=== PATIENT | male | born 1960 | race Caucasian/White ===

== ENCOUNTER 2017-09-03 15:12 | Emergency (ER) | payer OTHER, SELFPAY ==
[2017-09-03 15:16] VITALS: BP 148/93; PULSE 82; RESP 16; TEMP 36.6; O2SAT 98; BMI 26.3
--- NOTE | 2017-09-03 15:39 | ED.DCSUM_ITS ---
- ER Visit Summary Date of Service: 09/03/17 Chief Complaint: Bleeding from left facial wound History of Present Illness: The patient is a 57 M 3 of anxiety depression and spinal stenosis. He is on no blood thinners. He gets anxious and picks the skin his face. He has had wounds on both cheeks for the last year. He has been evaluated for this by his primary care physician Dr. Johnston. Today he was picking at his left cheek and caused start bleeding. He has been bleeding for the last several hours. Physical Examination: Signs are stable afebrile. He is in no acute distress. H EENT exam pupils are reactive light. Poor dentition. His left cheek has a wound with a deficit of skin that is a pulsatile arterial bleed. Chronic wound is bleeding. I do not see any signs of infection. There is no cellulitis or pus. Lungs clear to auscultation bilaterally. Heart regular rate and rhythm no murmur. Abdomen soft nontender. Moving all 4 extremities. Neurologically is awake and alert. Test Results: None Emergency Department Course and Treatment: Patient will hold LET dilution the left side of his face to hopefully off the bleeding. Treatment Plan: Repeat exam at 1617 the bleeding is completely resolved. There is no bleeding at this time even with manipulation of the left facial wound. I give the patient very clear instructions and cannot keep picking this area or the bleeding or return. The nurses will place a clean dressing and bacitracin will be discharged home. 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 This note was generated with [employer] dictation software. It may contain incorrect words, spelling, and punctuation that were not noted in review of the chart prior to signing ED Disposition - Plan for ED Patient: Disposition: Home or Assisted Living Chief Complaint: Wound Referrals: Mike Johnston, [Primary Care Provider] - As Needed Additional Instructions: Stop picking the skin of your left face. There are going to cause a severe infection and the bleeding will continue. If the bleeding restarts needle direct pressure and ice to the left facial wound. If you are unable to get. He will need to return to the emergency department.
[2017-09-03] MEDS: Lidocaine/Epi/Tetracaine 50 ML 1 APPLIC TOPICAL (15:40)
[2017-09-03 16:28] VITALS: PULSE 85; RESP 16; O2SAT 95
== END 2017-09-03 16:29 | disposition home or self-care (01) ==
LOC: ED 15:48
PROVIDERS: Emergency Provider Emergency Medicine; Family Provider Family Medicine; PCP Family Medicine
DX: S01.402A Unspecified open wound of left cheek and temporomandibular area, initial encounter (principal); R58 Hemorrhage, not elsewhere classified; F41.9 Anxiety disorder, unspecified; F32.9 Major depressive disorder, single episode, unspecified; M48.00 Spinal stenosis, site unspecified; Z72.0 Tobacco use; Z79.899 Other long term (current) drug therapy; Y33.XXXA Other specified events, undetermined intent, initial encounter; Y93.89 Activity, other specified; Y92.89 Other specified places as the place of occurrence of the external cause; Y99.8 Other external cause status
CPT/HCPCS: 99282

== ENCOUNTER 2017-11-15 22:11 | Emergency (ER) | payer OTHER, SELFPAY ==
[2017-11-15 22:12] VITALS: BP 135/90; PULSE 78; RESP 18; TEMP 36.6; O2SAT 98; BMI 29.5
[2017-11-15] MEDS: Diphth,Pertuss(Acell),Tet Vac 0.5 ML Vial IM (22:53)
[2017-11-15] MEDS: Lidocaine/Epi/Tetracaine 50 ML 1 APPLIC TOPICAL (22:53)
--- NOTE | 2017-11-15 23:37 | ED.VISSUMM ---
- ER Visit Summary Date of Service: 11/15/17 Chief Complaint: Laceration left ear] History of Present Illness: The patient is a 57 M presents to the emergency department with a laceration to his left ear that sustained tonight. Patient states that he slipped and fell landing with his ear against a metal bolt. Patient unsure of his last tetanus. Patient denies loss of consciousness. Patient not on any blood thinners.] Physical Examination: HEENT-PERRLA, EOMI. Cranial nerves II through XII grossly intact. TMs clear. Mucous membranes moist. No adenopathy. Left ear-patient has a 2 cm flap-like laceration to the pinna of the left ear with some cartilage involvement. Cardiovascular-regular rate and rhythm without murmur or ectopy Lungs-clear to auscultation, chest wall stable without crepitus or subcu emphysema Abdomen-normoactive bowel sounds, soft, nontender, no rebound or rigidity, no peritoneal signs. Extremities-intact ?4, normal range of motion, normal pulses, atraumatic [] Test Results: [None indicated] Emergency Department Course and Treatment: [Laceration repair per Dr. Rae. Wound was anesthetized locally with let solution topically. Patient had wound irrigated and cleansed. Closed with 6-0 nylon a total of 4 single interrupted sutures placed. Patient was started on Cipro given cartilage involvement.] Treatment Plan: [Patient to follow-up with primary care physician for suture removal in 7 days.] Disposition: [Discharged home in stable condition.] Impression: [Left ear laceration-simple repair] This note was generated with [employer] dictation software. It may contain incorrect words, spelling, and punctuation that were not noted in review of the chart prior to signing ED Disposition - Plan for ED Patient: Chief Complaint: Laceration Referrals: Mike oJhnston DO [Primary Care Provider] -
--- NOTE | 2017-11-15 23:41 | ED.DCSUM_ITS ---
- ER Visit Summary Date of Service: 11/15/17 Chief Complaint: Laceration left ear] History of Present Illness: The patient is a 57 M presents to the emergency department with a laceration to his left ear that sustained tonight. Patient states that he slipped and fell landing with his ear against a metal bolt. Patient unsure of his last tetanus. Patient denies loss of consciousness. Patient not on any blood thinners.] Physical Examination: HEENT-PERRLA, EOMI. Cranial nerves II through XII grossly intact. TMs clear. Mucous membranes moist. No adenopathy. Left ear- patient has a 2 cm flap-like laceration to the pinna of the left ear with some cartilage involvement. Cardiovascular-regular rate and rhythm without murmur or ectopy Lungs-clear to auscultation, chest wall stable without crepitus or subcu emphysema Abdomen-normoactive bowel sounds, soft, nontender, no rebound or rigidity, no peritoneal signs. Extremities-intact ?4, normal range of motion, normal pulses, atraumatic [] Test Results: [None indicated] Emergency Department Course and Treatment: [Laceration repair per Dr. Rae. Wound was anesthetized locally with let solution topically. Patient had wound irrigated and cleansed. Closed with 6-0 nylon a total of 4 single interrupted sutures placed. Patient was started on Cipro given cartilage involvement.] Treatment Plan: [Patient to follow-up with primary care physician for suture removal in 7 days.] Disposition: [Discharged home in stable condition.] Impression: [Left ear laceration-simple repair] This note was generated with [employer] dictation software. It may contain incorrect words, spelling, and punctuation that were not noted in review of the chart prior to signing ED Disposition - Plan for ED Patient: Chief Complaint: Laceration Referrals: Mike Johnston DO [Primary Care Provider] -
--- NOTE | 2017-11-15 23:41 | ED.DEP ---
ED Disposition - Plan for ED Patient: Chief Complaint: Laceration Instructions: ED Laceration Facial Sutr Tape Prescriptions: Ciprofloxacin [Cipro] 500 mg PO BID #14 tab Referrals: Mike Johnston DO [Primary Care Provider] - 7 Days for suture removal
[2017-11-15] MEDS: Ciprofloxacin 250 MG Tablet 500 MG PO (23:48)
[2017-11-15 23:51] VITALS: PULSE 82; RESP 14; O2SAT 99
== END 2017-11-16 | disposition home or self-care (01) ==
LOC: ED 22:31
PROVIDERS: Emergency Provider Emergency Medicine; Family Provider Family Medicine; PCP Family Medicine
DX: S01.312A Laceration without foreign body of left ear, initial encounter (principal); F41.9 Anxiety disorder, unspecified; F32.9 Major depressive disorder, single episode, unspecified; M54.9 Dorsalgia, unspecified; Z72.0 Tobacco use; Z79.891 Long term (current) use of opiate analgesic; Z79.899 Other long term (current) drug therapy; W26.8XXA Contact with other sharp object(s), not elsewhere classified, initial encounter; Y93.01 Activity, walking, marching and hiking; Y92.89 Other specified places as the place of occurrence of the external cause; Y99.8 Other external cause status
CPT/HCPCS: 12011; 90471; 90715; 99283

== ENCOUNTER → 2018-06-04 14:12 | Outpatient (CLI) | payer OTHER, SELFPAY ==
[2018-06-04 17:34] LABS: Absolute Lymphocyte Count 2.74 X10^3/ul (0.83-4.51); Absolute Neutrophil Count 4.1 X10^3/uL (2.0-7.7); Basophil# 0.04 X10^3/uL; Basophil% 0.5 % (0-1); Eosinophil# 0.21 X10^3/uL; Eosinophils% 2.7 % (0-5); Hematocrit 43.7 % (40-54); Hemoglobin 14.5 g/dl (13.0-16.5); Lymphocyte # 2.74 X10^3/ul (4.0); Lymphocyte % 35.2 % (19-41); Mean Corp Hgb Conc 33.2 g/gl (32-36); Mean Corpuscular Volume 96.5 fL (80-94); Mean Platelet Vol. 11.3 fl (6.2-12.0); Monocyte# 0.71 X10^3/uL; Monocyte% 9.1 % (0-10); Neutrophil # 4.06 X10^3/uL (2.7-7.7); Neutrophil % 52.1 % (47-70); POSITIVE COUNT NO; POSITIVE DIFFERENTIAL NO; POSITIVE MORPHOLOGY NO; Platelet Count 248 K/mm3 (150-450); RBC Distribution Width CV 13.2 % (11.6-14.6); RBC Distribution Width SD 45.6 fl (35.1-43.9); Red Blood Count 4.53 M/mm3 (4.6-6.2); White Blood Count 7.8 K/mm3 (4.4-11.0)
[2018-06-04 17:45] LABS: ALB/GLOB Ratio 1.1 RATIO (0.9-2.4); AST(SGOT) 18 U/L (15-37); Alanine Aminotransfer ALT/SGPT 24 U/L (16-61); Alkaline Phosphatase 105 U/L (45-117); Anion Gap 8 (5-15); BUN 16 mg/dL (7-18); BUN/Creat Ratio 17.8 RATIO (10-20); Calcium,Total 8.7 mg/dL (8.5-10.1); Chloride 105 mmol/L (98-107); Cholesterol 202 mg/dL (200); EST Glomerular Filtration Rate 92 mL/min (>60); Est Glom Filt Rate - Afr Amer 111 mL/min (>60); Globulin 3.5 g/dL (2.2-4.2); Glucose 110 mg/dL (74-106); High Density Lipoprotein 48 mg/dL; PSA,Total - Annual Screen 1.72 ng/mL (0.00-4.00); Potassium 4.5 mmol/L (3.5-5.1); Protein, Total 7.5 g/dL (6.4-8.2); Sodium Level 143 mmol/L (136-145); Triglycerides 184 mg/dL; Very Low Density Lipoprotein 37 mg/dL (5-40)
[2018-06-04 18:06] LABS: Microalbumin,Random Urine 43.4 mg/L (NO RANGE EST.); Microalbumin:Creatinine Ratio 57.5 mg/g CRE (<30 mg/g CRE)
[2018-06-05 16:21] LABS: Hemoglobin A1c 6.1 % (4.2-6.3)
== END ==
LOC: BFHLAB 14:13
PROVIDERS: Family Provider Family Medicine; PCP Family Medicine; Visit Provider Family Medicine
DX: I10 Essential (primary) hypertension (principal); Z12.5 Encounter for screening for malignant neoplasm of prostate
CPT/HCPCS: 36415; 80053; 80061; 82043; 82570; 83036; 84153; 85025; G0103

== ENCOUNTER → 2019-05-07 | Outpatient (CLI) | payer OTHER, SELFPAY ==
--- NOTE | 2019-05-07 14:57 | CT_ITS ---
STUDY: LOW DOSE CT LUNG CANCER SCREENING REASON FOR EXAM: Male, 58 years old. Screening, smoked 1 pack per day x44 years RADIATION DOSAGE (If Supplied By Facility): CTDIvol = ( 3.02 ) mGy, DLP = ( 113.62 ) mGycm TECHNIQUE: No contrast was administered. Low dose technique was utilized (average mAS-38 and kVp 120). 1.25 mm axial source images with a slice interval of 1.25-mm were reconstructed in lung windows. 2.5 mm axial source images with a slice interval of 2.5-mm were reconstructed in lung windows. 5.0 mm axial source images with a slice interval of 5.0-mm were reconstructed in soft tissue windows. Nodule measured using lung windows on PACS and/or independent workstation with automated measurement of minimum and maximum diameter. Nodule measurement reported as average diameter rounded to the nearest whole number. Growth is defined as an increase ins size of greater than 1.5 mm. COMPARISON: None. No demonstrated nodules. Lung mabry are free of superimposed acute pulmonary process. No demonstrated effusion. Total lung nodules (excluding granulomas): 0 Emphysema: Not present Endobronchial lesion: Not present Aorta: Tapers normally Other chest and abdominal findings: None CT/Low Dose CT Lung Screening IMPRESSION: Lung-RADS category 1 - Continue annual screening with LDCT in 12 months. IMPORTANT NOTES FOR USE: ACR Lung-RADS Version 1.0 Assessment Categories Release Date: October 28, 2013 Category: Coded 0-4 bases on nodule(s) with highest degree of suspicion. Negative screen is defined as categories 1 and 2; a positive screen is defined as categories 3 and 4. Category 3 and 4A nodules that are unchanged on interval CT should be coded as category 2, and individuals returned to screening in 12 months. Category 4X: Category 3 or 4 nodules with additional imaging findings that increase the suspicion of lung cancer, such as spiculation, GGN that doubles in size in 1 year, enlarged lymph notes, etc. Category Modifiers: S (significant finding unrelated to lung cancer) and C (prior history of treated lung cancer) may be added to the 0-4 Lung-RADS Electronically Signed: Filiberto Hsu MD at 15:43 EST , Service support ,
== END | disposition home or self-care (01) ==
LOC: CT 14:55
PROVIDERS: Family Provider Family Medicine; PCP Family Medicine; Referring Provider Family Medicine; Visit Provider Family Medicine
DX: Z12.2 Encounter for screening for malignant neoplasm of respiratory organs (principal)
CPT/HCPCS: G0297

== ENCOUNTER → 2020-03-27 13:28 | Outpatient (CLI) | payer OTHER, SELFPAY ==
[2020-03-27 15:19] LABS: Absolute Lymphocyte Count 2.85 X10^3/uL (0.83-4.51); Absolute Neutrophil Count 2.7 X10^3/uL (2.0-7.7); Basophil# 0.05 X10^3/uL; Basophil% 0.8 % (0-1); Eosinophil# 0.09 X10^3/uL; Eosinophils% 1.4 % (0-5); Hematocrit 43.2 % (40-54); Hemoglobin 14.2 g/dL (13.0-16.5); Lymphocyte # 2.85 X10^3/ul (4.0); Lymphocyte % 45.8 % (19-41); Mean Corp Hgb Conc 32.9 g/dL (32-36); Mean Corpuscular Volume 94.3 fL (80-94); Mean Platelet Vol. 10.6 fl (6.2-12.0); Monocyte# 0.53 X10^3/uL; Monocyte% 8.5 % (0-10); NRBC Flagged by Analyzer 0 % (0-5); Neutrophil # 2.69 X10^3/uL (2.7-7.7); Neutrophil % 43.3 % (47-70); Platelet Count 270 K/mm3 (150-450); RBC Distribution Width CV 12.5 % (11.6-14.6); RBC Distribution Width SD 43.5 fl (35.1-43.9); Red Blood Count 4.58 M/mm3 (4.6-6.2); White Blood Count 6.2 K/mm3 (4.4-11.0)
[2020-03-27 15:38] LABS: Microalbumin,Random Urine 52.2 mg/L (NO RANGE EST.); Microalbumin:Creatinine Ratio 25.5 mg/g CRE (<30 mg/g CRE)
[2020-03-27 15:54] LABS: AST(SGOT) 14 U/L (15-37); Alanine Aminotransfer ALT/SGPT 17 U/L (16-61); Albumin, Serum 3.8 g/dL (3.2-5.0); Alkaline Phosphatase 69 U/L (45-117); Anion Gap 5 (5-15); BUN 19 mg/dL (7-18); BUN/Creat Ratio 21.9 RATIO (10-20); Chloride 104 mmol/L (98-107); Cholesterol 215 mg/dL (200); Creatinine, Serum 0.87 mg/dL (0.70-1.30); EST Glomerular Filtration Rate 95 mL/min (>60); Est Glom Filt Rate - Afr Amer 115 mL/min (>60); Globulin 3.7 g/dL (2.2-4.2); Glucose 87 mg/dL (74-106); High Density Lipoprotein 45 mg/dL; PSA,Total - Annual Screen 2.49 ng/mL (0.00-4.00); Potassium 4.2 mmol/L (3.5-5.1); Protein, Total 7.5 g/dL (6.4-8.2); Sodium Level 138 mmol/L (136-145); Triglycerides 96 mg/dL; Very Low Density Lipoprotein 19 mg/dL (5-40)
== END ==
LOC: BFHLAB 13:29
PROVIDERS: PCP Family Medicine; Visit Provider Family Medicine
DX: Z00.00 Encounter for general adult medical examination without abnormal findings (principal); R73.03 Prediabetes; I10 Essential (primary) hypertension; Z12.5 Encounter for screening for malignant neoplasm of prostate
CPT/HCPCS: 36415; 80053; 80061; 82043; 82570; 83036; 84153; 85025; G0103

== ENCOUNTER → 2022-05-23 | Outpatient (CLI) | payer OTHER, SELFPAY ==
--- NOTE | 2022-05-23 17:27 | CT_ITS ---
EXAM: CT CHEST, LUNG CANCER SCREENING WITHOUT INTRAVENOUS CONTRAST CLINICAL INDICATION: TOBACCO ABUSE TECHNIQUE: Helically acquired images were obtained of the chest without intravenous contrast using low dose (LDCT) lung cancer screening protocol. This CT exam was performed using one or more of the following dose reduction techniques: automated exposure control, adjustment of the mA and/or kV according to patient size, and/or use of iterative reconstruction technique. This report was created using [employer] report generation technology. COMPARISON: 05/07/2019 FINDINGS: LUNGS AND PLEURAL SPACES: Unremarkable. No mass. No consolidation or edema. No pleural effusion or thickening. No pneumothorax. HEART: Unremarkable. Heart size is normal. No pericardial effusion. No significant coronary artery calcifications. MEDIASTINUM: Unremarkable. No mediastinal or hilar adenopathy. Esophagus is unremarkable. No hiatal hernia. THYROID: Unremarkable. No thyroid lesions. BONES/JOINTS: Unremarkable. No suspicious lytic or blastic abnormality. VASCULATURE: Unremarkable. Thoracic aorta is non-dilated. LYMPH NODES: Unremarkable. No enlarged lymph nodes. CT/Low Dose CT Lung Screening IMPRESSION: 1. Lung-RADS score: 1 - Recommend continued annual screening with low-dose CT (LDCT) in 12 months. 2. No acute pulmonary abnormality. There has been no change from reference exam. Electronically Signed: Shaun Crowe MD at 23:55 EST ,
== END | disposition home or self-care (01) ==
LOC: CT 17:24
PROVIDERS: PCP Family Medicine; Referring Provider Family Medicine; Visit Provider Family Medicine
DX: Z12.2 Encounter for screening for malignant neoplasm of respiratory organs (principal)
CPT/HCPCS: 71271

== ENCOUNTER 2022-06-19 08:10 | Emergency (ER) | payer OTHER, SELFPAY ==
[2022-06-19 08:11] VITALS: BP 146/89; PULSE 84; RESP 17; TEMP 36.2; O2SAT 99; BMI 30.7
--- NOTE | 2022-06-19 08:18 | EX.ED.DYSGE1 ---
HPI History of Present Illness Chief Complaint: Flank Pain Informant: patient Onset/Context/Timing Onset: Yesterday Context: Gradual Onset Timing: Continuous Quality: Sharp Location: Right flank and testicle Worsened by: Coughing, bending Relieved by: Nothing Narrative Narrative: Presents with right flank pain that began yesterday. Patient states it came on gradually. Patient states the pain radiates into his right testicle. Patient describes the pain as sharp. Patient states it is worse with coughing and with bending. Patient states nothing makes it better. Patient denies any dysuria or hematuria. Patient admits to nausea but denies any vomiting. Patient denies any fevers or chills. Patient denies any diarrhea. Patient states he has had similar pain in the past with kidney stones. PFSH PFSH Home Medications Venlafaxine Xr [Effexor Xr] 75 mg PO DAILY 06/20/14 [History Last Taken 11/15/17] alprazolam 1 mg tablet (Xanax) 1 mg PO BID PRN PRN Anxiety/Restlessness/Sleep 06/20/14 [History Last Taken 11/15/17] amitriptyline 50 mg tablet 50 mg PO QHS 06/20/14 [History Last Taken 11/15/17] oxycodone-acetaminophen 10 mg-325 mg tablet 1 ea PO PRN PRN Pain 06/20/14 [History Last Taken 11/15/17] pregabalin 50 mg capsule 50 mg PO BID 06/20/14 [History Last Taken 11/15/17] triamterene 37.5 mg-hydrochlorothiazide 25 mg capsule 1 cap PO DAILY 06/20/14 [History Last Taken 11/15/17] sertraline 100 mg tablet 200 mg PO DAILY 12/05/16 [History Last Taken 11/15/17] cephalexin 500 mg capsule 500 mg PO Q6 ##40 12/06/16 [Rx Last Taken 11/15/17] ciprofloxacin HCl 500 mg tablet 500 mg PO BID #14 tabs 11/15/17 [Rx Last Taken Unknown] oxycodone 30 mg tablet,crush resistant,extended release 12 hr (OxyContin) 30 mg PO BID 11/15/17 [History Last Taken 11/15/17] sulfamethoxazole 800 mg-trimethoprim 160 mg tablet 1 tab PO BID #6 TABLETS 06/19/22 [Rx Last Taken Unknown] Allergy/AdvReac Type Severity Reaction Status Date / Time venom-honey bee Allergy Severe Anaphylaxis Verified 06/19/22 08:10 [bee venom (honey bee)] Surgical History (Updated 06/19/22 @ 08:[address] Monster Stapleton DO) History of back surgery Social History Smoking Status: Current every day smoker tobacco type: cigarettes ROS ROS ED Constitutional Constitutional ED: Denies chills or fever(s) Eyes Eyes: Denies blurry vision or change in vision ENT ENT ED: Denies rhinorrhea or sore throat Cardiovascular Cardiovascular: Denies chest pain or palpitations Respiratory/Chest Respiratory/Chest: Denies cough or dyspnea Gastrointestinal Gastrointestinal: Reports nausea; Denies vomiting Genitourinary Genitourinary ED: Denies dysuria or hematuria Musculoskeletal Musculoskeletal: Reports back pain; Denies neck pain Integumentary Denies abscess or rash Neurologic Neurologic: Denies headache(s) or weakness Allergic/Immunologic Allergic/Immunologic ED: Denies mouth swelling or urticaria EXAM Physical Exam Const Vital Signs: 06/19/22 08:11 06/19/22 08:21 06/19/22 10:12 Temperature 97.1 F L Temperature Source Temporal Pulse Rate 84 91 Respiratory Rate 17 18 Respiratory Pattern Normal Blood Pressure 146/89 H Blood Pressure Mean 108 Pulse Ox 99 99 Oxygen Delivery Method Room Air Room Air Positive well nourished and well developed General Appearance ED: well developed HEENT Reports moist mucous membranes Neck supple and no JVD Resp normal respiratory effort and clear to auscultation bilaterally Cardio regular rate, regular rhythm and no murmurs GI normal to inspection, nondistended, normoactive bowel sounds Palpation: soft and tender RLQ and RUQ; Negative for rebound tenderness present Narrative: There is tenderness over the right testicle and epididymis. There is no inguinal hernia. There are no masses palpated. There is no testicular swelling. There is a vertical lie with the epididymis posterior. The left testicle is nontender. Back/Spine General Back: CVA tenderness right Extremity normal to inspection General Extremety ED: Negative for edema or tenderness General Extremity: Negative for edema Neuro oriented x3, CN's II-XII intact bilaterally and no sensory deficits noted Sensorium / Orientation: alert Motor Exam: strength 5/5 throughout Psych mental status grossly normal Skin no rashes or lesions noted MDM MDM MDM Narrative Medical decision making narrative: Patient was given IV fluids, Zofran, and Toradol. CBC was within normal limits. Comprehensive metabolic profile was essentially within normal limits. Urinalysis shows leukocyte esterase of 100 with 5-10 white blood cells. Urine culture was ordered. CT scan of the abdomen pelvis was obtained. There is a 2 mm right lower lobe pulmonary nodule that is unchanged compared to previous CT scan. There is a right renal calculus but there is no ureteral calculus or obstruction. There is urinary bladder wall thickening. There are gallstones noted. This was interpreted by the radiologist and reviewed by myself. Patient is resting comfortably on reevaluation. Patient was advised of his findings. Patient was instructed to drink plenty of fluids. Patient was instructed to take Tylenol or ibuprofen as needed for any pain or fevers. Patient was given a dose of Bactrim here. Patient was given a prescription for Bactrim. Patient was instructed to follow-up with his primary care physician in 5 to 7 days. Patient understood and was agreeable with the plan. All questions were answered. Lab Data Attestation: I reviewed the patient's lab results. Labs: Laboratory Results - last 24 hr 06/19/22 06/19/22 06/19/22 08:20 08:20 09:26 WBC 10.6 RBC 4.36 L Hgb 14.4 Hct 42.4 MCV 97.2 H MCH 33.0 H MCHC 34.0 RDW Std Deviation 46.5 H RDW Coeff of Azul 12.9 Plt Count 234 MPV 10.8 Immature Gran % (Auto) 0.200 Neut % (Auto) 48.9 Lymph % (Auto) 40.7 [place] % (Auto) 7.9 Eos % (Auto) 1.8 Baso % (Auto) 0.5 Absolute Neuts (auto) 5.2 Absolute Lymphs (auto) 4.32 Nucleated RBC % 0 Sodium 139 Potassium 4.2 Chloride 108 H Carbon Dioxide 25.0 Anion Gap 6 BUN 21 H Creatinine 0.96 Estim Creat Clear Calc 68.51 Est GFR (MDRD) Af Amer 101 Est GFR (MDRD) Non-Af 83 BUN/Creatinine Ratio 21.8 H Glucose 153 H Calcium 9.7 Total Bilirubin 0.40 AST 16 ALT 21 Alkaline Phosphatase 62 Total Protein 7.3 Albumin 4.0 Globulin 3.3 Albumin/Globulin Ratio 1.2 Urine Color Yellow Urine Clarity Clear Urine pH 6.0 Ur Specific [place] 1.020 Urine Protein 15 H Urine Glucose (UA) Normal Urine Ketones Negative Urine Occult Blood Negative Urine Nitrite Negative Urine Bilirubin Negative Urine Urobilinogen Normal Ur Leukocyte Esterase 100 H Urine RBC 0 SEEN Urine WBC 5-10 SEEN Ur Squamous Epith Cells 0 SEEN Urine Bacteria 0 SEEN Urine Mucus 0 SEEN Radiography Diagnostic Testing: Clinical Impression(s) from Imaging Studies Abdomen/Pelvis CT 06/19/22 08:20 IMPRESSION: 1. 2 mm right lower lobe pulmonary nodule unchanged from prior screening exam of May 23, 2022. Recommend follow-up lung screening study 12 months. 2. Cholelithiasis. 3. Right nephrolithiasis without evidence of urinary tract obstruction. 4. Urinary bladder wall thickening which may represent cystitis or bladder hypertrophy. Electronically Signed: Omari Slater MD at 9:06 EST Reading Location ID and State: [facility], [facility]–1983 / [place] Tel , Service support , Discharge Plan Triage Chief Complaint: Flank Pain ED Provider: Monster Stapleton Dx/Rx/DC Orders Clinical Impression: Epididymitis, Cystitis Instructions: ED Epididymitis, ED Bladder Infection, Male (Adult) Prescriptions: New sulfamethoxazole-trimethoprim [sulfamethoxazole-trimethoprim] 800-160 mg tablet 1 tab PO BID Qty: 6 0RF No Action oxycodone-acetaminophen 1 EACH tablet 1 ea PO PRN PRN (Reason: Pain) alprazolam [Xanax] 1 MG tablet 1 mg PO BID PRN PRN (Reason: Anxiety/Restlessness/Sleep) amitriptyline 50 MG tablet 50 mg PO QHS triamterene-hydrochlorothiazid 1 CAP capsule 1 cap PO DAILY pregabalin 50 MG capsule 50 mg PO BID Venlafaxine Xr [Effexor Xr] 75 MG capsule 75 mg PO DAILY sertraline 100 MG tablet 200 mg PO DAILY Label Comments: take 2 tablets by mouth once daily cephalexin 500 MG capsule 500 mg PO Q6 Qty: 40 0RF oxycodone [OxyContin] 30 MG tablet,oral only,ext.rel.12 hr 30 mg PO BID Label Comments: take 1 tablet by mouth twice a day ciprofloxacin HCl 500 MG tablet 500 mg PO BID Qty: 14 0RF Primary Care Provider: Mike Johnston Referrals: Mike Johnston DO [Primary Care Provider] - Disposition Disposition: Home, Self Care
--- NOTE | 2022-06-19 08:20 | CT_ITS ---
EXAM: CT ABDOMEN AND PELVIS WITHOUT INTRAVENOUS CONTRAST CLINICAL INDICATION: RIGHT FLANK PAIN X 1 DAY TECHNIQUE: Helically acquired images were obtained of the abdomen and pelvis without intravenous contrast. This CT exam was performed using one or more of the following dose reduction techniques: automated exposure control, adjustment of the mA and/or kV according to patient size, and/or use of iterative reconstruction technique. This report was created using [employer] report generation technology. COMPARISON: CT lung screening May 23, 2022, CT Abdomen Pelvis dated 12/06/2016 FINDINGS: LOWER THORAX: Stable 2 mm right lower lobe pulmonary nodule noted on image 7 of sequence 2. Lung bases are otherwise clear. Small sliding hiatal hernia is noted. A small calcified stone present within the gallbladder. ABDOMEN: LIVER: Normal. Homogeneous. GALLBLADDER AND BILE DUCTS: Normal. No calcified gallstones. No gallbladder distention or wall edema. No intra- or extrahepatic biliary ductal dilation. PANCREAS: Normal. No focal cystic mass. SPLEEN: Normal. Normal size without focal cystic or solid mass. ADRENALS: Normal. No nodules. KIDNEYS AND URETERS: Punctate stone noted within the lower pole of the right kidney. Central right renal calcification appears to be arterial in nature and unchanged from prior study. No evidence of urinary tract obstruction. Normal left kidney. STOMACH AND BOWEL: Normal. No bowel distention. No focal inflammatory change. PELVIS: APPENDIX: Appendix is visualized and normal in appearance. BLADDER: Urinary bladder is contracted and thick-walled with similar appearance on prior exam. Cystitis or bladder hypertrophy to be excluded. REPRODUCTIVE: Prostate gland is mildly prominent in size again noted to contain dense calcification. ABDOMEN and PELVIS: INTRAPERITONEAL SPACE: Normal. No ascites or other fluid collection. No free air. BONES/JOINTS: L5-S1 disc implantation interpedicular screw fixation of L5 and S1 again seen. No suspicious lytic or blastic abnormality. SOFT TISSUES: Normal. No discrete abdominal or pelvic wall hernia. VASCULATURE: No aortic aneurysm. LYMPH NODES: Normal. No enlarged lymph nodes. CT/Abdomen/Pelvis without Cont IMPRESSION: 1. 2 mm right lower lobe pulmonary nodule unchanged from prior screening exam of May 23, 2022. Recommend follow-up lung screening study 12 months. 2. Cholelithiasis. 3. Right nephrolithiasis without evidence of urinary tract obstruction. 4. Urinary bladder wall thickening which may represent cystitis or bladder hypertrophy. Electronically Signed: Omari Slater MD at 9:06 EST ,
[2022-06-19] MEDS: Ondansetron 4 MG/2 ML Vial IV (08:29)
[2022-06-19] MEDS: Ketorolac 30 MG/ML Syringe IV (08:29)
[2022-06-19] MEDS: 0.9% Normal Saline 1,000 ML 1000 ML IV (08:29)
[2022-06-19 08:32] LABS: Absolute Lymphocyte Count 4.32 X10^3/uL (0.83-4.51); Absolute Neutrophil Count 5.2 X10^3/uL (2.0-7.7); Basophil# 0.05 X10^3/uL; Basophil% 0.5 % (0-1); Eosinophil# 0.19 X10^3/uL; Eosinophils% 1.8 % (0-5); Hematocrit 42.4 % (40-54); Hemoglobin 14.4 g/dL (13.0-16.5); Lymphocyte # 4.32 X10^3/ul (0.83-4.51); Lymphocyte % 40.7 % (19-41); Mean Corpuscular Volume 97.2 fL (80-94); Mean Platelet Vol. 10.8 fl (6.2-12.0); Monocyte# 0.84 X10^3/uL; Monocyte% 7.9 % (0-10); NRBC Flagged by Analyzer 0 % (0-5); Neutrophil # 5.19 X10^3/uL (2.7-7.7); Neutrophil % 48.9 % (47-70); Platelet Count 234 K/mm3 (150-450); RBC Distribution Width CV 12.9 % (11.6-14.6); RBC Distribution Width SD 46.5 fl (35.1-43.9); Red Blood Count 4.36 M/mm3 (4.6-6.2); White Blood Count 10.6 K/mm3 (4.4-11.0)
[2022-06-19 08:49] LABS: ALB/GLOB Ratio 1.2 RATIO (0.9-2.4); AST(SGOT) 16 U/L (15-37); Alanine Aminotransfer ALT/SGPT 21 U/L (16-61); Alkaline Phosphatase 62 U/L (45-117); Anion Gap 6 (5-15); BUN 21 mg/dL (7-18); BUN/Creat Ratio 21.8 RATIO (10-20); Calcium,Total 9.7 mg/dL (8.5-10.1); Chloride 108 mmol/L (98-107); Creatinine, Serum 0.96 mg/dL (0.70-1.30); EST Glomerular Filtration Rate 83 mL/min (>60); Est Glom Filt Rate - Afr Amer 101 mL/min (>60); Estimated Creatinine Clearance 68.51 ml/min; Globulin 3.3 g/dL (2.2-4.2); Glucose 153 mg/dL (74-106); Potassium 4.2 mmol/L (3.5-5.1); Protein, Total 7.3 g/dL (6.4-8.2); Sodium Level 139 mmol/L (136-145)
[2022-06-19 09:31] LABS: Bacteria 0 SEEN /hpf (None Seen); Mucous, Urine 0 SEEN /hpf (<or=2+); Red Blood Cells-Urine 0 SEEN /hpf (0-5); Squamous Epithelial Cells - UA 0 SEEN /hpf (0-5)
[2022-06-19 09:33] LABS: Color, Urine Yellow (Yellow); Glucose, Dipstick Normal (Normal); Ketone-Dipstick Negative (Negative); Leukocyte Esterase-Dipstick 100 /ul (Negative); Nitrite-Dipstick Negative (Negative); Occult Blood-Urine Negative /ul (Negative); Protein-Dipstick 15 mg/dl (Negative); Urine Bilirubin Dipstick Negative (Negative); Urine Clarity Clear (Clear); Urine Urobilinogen Normal (Normal)
[2022-06-19 09:42] LABS: White Blood Cells 5-10 SEEN /hpf (0-5)
[2022-06-19 10:12] VITALS: PULSE 91; RESP 18; O2SAT 99
[2022-06-19] MEDS: Smz/Tmp Ds Tablet 1 TABLET PO (10:48)
[2022-06-19 10:51] VITALS: PULSE 87; RESP 16; O2SAT 97
== END 2022-06-19 10:52 | disposition home or self-care (01) ==
PROVIDERS: Emergency Provider Emergency Medicine; PCP Family Medicine; Visit Provider Emergency Medicine
DX: N45.1 Epididymitis (principal); N30.90 Cystitis, unspecified without hematuria; F17.210 Nicotine dependence, cigarettes, uncomplicated; N20.0 Calculus of kidney; K80.20 Calculus of gallbladder without cholecystitis without obstruction; R91.1 Solitary pulmonary nodule; Z79.899 Other long term (current) drug therapy
CPT/HCPCS: 74176; 80053; 81001; 85025; 87086; 87088; 96361; 96374; 96375; 99284; J7030; A4216; J2405

== ENCOUNTER 2022-06-22 11:35 | Emergency (ER) | payer OTHER, SELFPAY ==
[2022-06-22 11:37] VITALS: BP 141/79; PULSE 78; RESP 18; TEMP 37.1; O2SAT 100; BMI 26.1
[2022-06-22 11:39] VITALS: BP 141/79; PULSE 78; RESP 18; TEMP 37.1; O2SAT 100
--- NOTE | 2022-06-22 11:51 | US_ITS ---
STUDY: SCROTUM ULTRASOUND REASON FOR EXAM: Male, 61 years old. Right testicle pain TECHNIQUE: Ultrasound evaluation of the scrotum was performed with color Doppler and static castaneda-scale imaging. COMPARISON: None. FINDINGS: RIGHT TESTICLE INTRATESTICULAR: There is a normal size of the right testicle. The right testicle measures 3.2 cm x 2.5 cm x 1.6 cm. There is a homogenous echotexture. There is normal arterial and normal venous vascularity. There is no demonstrated right testicular mass or cyst. EXTRATESTICULAR: The epididymis is normal in size. The epididymis head measures 1.3 cm x 1.2 cm x 0.8 cm. There is normal vascularity of the epididymis. There is no demonstrated epididymal cystic structure. There is a small hydrocele. There is no demonstrated varicocele. There is no demonstrated extratesticular mass or cyst. LEFT TESTICLE INTRATESTICULAR: There is a normal size of the left testicle. The left testicle measures 2.9 cm x 2.87 x 1.4 cm. There is a homogenous echotexture. There is normal arterial and normal venous vascularity. There is no demonstrated left testicular mass or cyst. EXTRATESTICULAR: The epididymis is normal in size. The epididymis head measures 0.7 cm x 1.1 cm x 0.7 cm. There is normal vascularity of the epididymis. There is no demonstrated epididymal cystic structure. There is no demonstrated hydrocele. There is no demonstrated varicocele. There is no demonstrated extratesticular mass or cyst. US/Testicular with Arterial Flow IMPRESSION: Small right hydrocele. Heterogeneity of the right epididymis. Electronically Signed: Ethan Artis MD at 14:17 EST ,
--- NOTE | 2022-06-22 11:53 | EDS_ITS ---
HPI History of Present Illness Chief Complaint: Male Pain/Injury Detail of Chief Complaint: Right testicle pain x5 days Informant: patient Narrative Narrative: Patient presents to the emergency department with complaint of pain in his right testicle x5 days. Patient denies any trauma. Patient was seen in the emergency department 6 days ago for flank pain radiating to his testicle and had a CT that essentially just showed some bladder wall thickening otherwise nothing acute. Patient was told he had cystitis and possible epididymitis and was started on antibiotics. Patient continues to complain of severe pain with standing and mo ving. He has had subjective fever at home. Denies vomiting or diarrhea. Pain is a 10 out of 10 when moving. Patient denies any injury to his back. [facility] Medical History (Updated 06/22/22 @ 14:[address] Laya Kilpatrick DO) Cystitis Epididymitis History of kidney stones Home Medications Venlafaxine Xr [Effexor Xr] 75 mg PO DAILY 06/20/14 [History Last Taken 11/15/17] alprazolam 1 mg tablet (Xanax) 1 mg PO BID PRN PRN Anxiety/Restlessness/Sleep 06/20/14 [History Last Taken 11/15/17] amitriptyline 50 mg tablet 50 mg PO QHS 06/20/14 [History Last Taken 11/15/17] oxycodone-acetaminophen 10 mg-325 mg tablet 1 ea PO PRN PRN Pain 06/20/14 [History Last Taken 11/15/17] pregabalin 50 mg capsule 50 mg PO BID 06/20/14 [History Last Taken 11/15/17] triamterene 37.5 mg-hydrochlorothiazide 25 mg capsule 1 cap PO DAILY 06/20/14 [History Last Taken 11/15/17] sertraline 100 mg tablet 200 mg PO DAILY 12/05/16 [History Last Taken 11/15/17] cephalexin 500 mg capsule 500 mg PO Q6 ##40 12/06/16 [Rx Last Taken 11/15/17] ciprofloxacin HCl 500 mg tablet 500 mg PO BID #14 tabs 11/15/17 [Rx Last Taken Unknown] oxycodone 30 mg tablet,crush resistant,extended release 12 hr (OxyContin) 30 mg PO BID 11/15/17 [History Last Taken 11/15/17] sulfamethoxazole 800 mg-trimethoprim 160 mg tablet 1 tab PO BID #6 TABLETS 06/19/22 [Rx Last Taken Unknown] hydrocodone-acetaminophen 5-325mg 5mg-325mg 1 tab PO Q4H PRN PRN Pain 2 days #10 TABLETS 06/22/22 [Rx Last Taken Unknown] Allergy/AdvReac Type Severity Reaction Status Date / Time venom-honey bee Allergy Severe Anaphylaxis Verified 06/22/22 11:39 [bee venom (honey bee)] Surgical History History of back surgery Social History Smoking Status: Current every day smoker tobacco type: cigarettes ROS ROS ED Review of Systems ROS Unobtainable: other Constitutional Constitutional ED: Reports lethargy; Denies chills, fever(s), sweats or weight loss Eyes Eyes: Denies blurry vision, change in vision or diplopia ENT ENT ED: Denies rhinorrhea or sore throat Cardiovascular Cardiovascular: Denies chest pain, orthopnea or racing heartbeat Respiratory/Chest Respiratory/Chest: Denies cough, dyspnea, dyspnea on exertion, orthopnea or sputum Gastrointestinal Gastrointestinal: Reports abdominal pain; Denies diarrhea, nausea or vomiting Genitourinary Genitourinary ED: Reports other Details: Right testicle pain ; Denies dysuria, hematuria or urinary frequency Musculoskeletal Musculoskeletal: Denies arthralgias, back pain, myalgias or neck pain Integumentary Denies abscess, Abrasions or rash Neurologic Neurologic: Denies headache(s) or weakness Psychiatric Psychiatric: Denies anxiety, depression or suicidal thoughts Endocrine Endocrinology: Denies polydipsia, polyphagia or polyuria Hematologic/Lymphatic Hematologic/Lymphatic: Denies easy bleeding, easy bruising or lymphadenopathy Allergic/Immunologic Allergic/Immunologic ED: Denies mouth swelling, tongue swelling or urticaria EXAM Physical Exam Const Vital Signs: 06/22/22 11:37 06/22/22 11:39 06/22/22 12:39 Temperature 98.8 F 98.8 F 98.8 F Temperature Source Oral Oral Oral Pulse Rate 78 78 78 Respiratory Rate 18 18 18 Blood Pressure 141/79 H 141/79 H 141/79 H Blood Pressure Mean 99 99 99 Pulse Ox 100 100 100 Oxygen Delivery Method Room Air Room Air Room Air 06/22/22 13:00 06/22/22 14:16 Temperature 98 F Temperature Source Temporal Pulse Rate 80 80 Respiratory Rate 20 H Blood Pressure 151/82 H 107/54 L Blood Pressure Mean 105 71 Pulse Ox 98 99 Oxygen Delivery Method Room Air Room Air Positive well nourished and well developed General Appearance ED: well developed and NAD HEENT Reports TM's clear and moist mucous membranes normocephalic and atraumatic; Negative for trauma or tenderness Tympanic Membrane ED: Yes TM's clear Eyes PERRL and EOMs intact bilaterally General Eye ED: Negative for pale conjunctiva or scleral icterus Neck no lymphadenopathy, supple and no JVD General: Negative for tenderness Chest Wall inspection of chest normal and palpation of chest normal Chest: Negative for tenderness Resp normal respiratory effort and clear to auscultation bilaterally Effort and Inspection: Negative for respiratory distress or pain with movement Auscultation: Negative for rhonchi, wheezes or diminished lung sounds Cardio regular rate, regular rhythm, S1 normal heart sound, S2 normal heart sound and no murmurs Peripheral Pulses: pulses 2+ throughout GI normal to inspection, nondistended, normoactive bowel sounds, soft to palpation, non-distended and no masses GI Narrative: Tenderness to right lower quadrant with some guarding. There is no rebound, rigidity, or peritoneal signs. Narrative: Patient is circumcised. Right testicle does hang lower than the left testicle. Normal lie noted. Normal cremasteric reflex. Patient does have tenderness over the right epididymis and diffusely over the testicle. There is no erythema or cellulitic changes noted. Patient does have tenderness into the inguinal canal but I do not appreciate any hernias. Back/Spine no CVA tenderness and no thoracic nor lumbar tenderness Extremity normal to inspection General Extremety ED: Negative for edema General Extremity: Negative for edema Neuro oriented x3, CN's II-XII intact bilaterally, no sensory deficits noted and gait normal Sensorium / Orientation: awake, alert, oriented to person, oriented to place and oriented to time Motor Exam: strength 5/5 throughout and strength abnormal Psych mental status grossly normal Skin no rashes or lesions noted and no wounds MDM MDM MDM Narrative Medical decision making narrative: IV line established. Patient was medicated with Toradol, Zofran, and Dilaudid. Lab work-up ordered and ultrasound of testicles. Established on arrival. CBC with differential showed a normal white count and normal H&H. Chemistries unremarkable. Urinalysis was normal. Testicular ultrasound showed normal vascularity to the right testicle and just a small hydrocele. No other acute abnormalities noted. This point etiology of his pain is unclear. He had a CT scan 3 days ago and I do not think this needs to be repeated as he has no blood in his urine. Patient advised to follow-up with urology. He will be given a prescription for [place] for pain. He is advised to use [id number] stool softeners and magnesium citrate if he should develop some constipation. Lab Data Attestation: I reviewed the patient's lab results. Labs: Laboratory Results - last 24 hr 06/22/22 06/22/22 06/22/22 12:15 12:15 13:05 WBC 7.6 RBC 4.42 L Hgb 14.4 Hct 42.1 MCV 95.2 H MCH 32.6 H MCHC 34.2 RDW Std Deviation 43.9 RDW Coeff of Azul 12.5 Plt Count 219 MPV 11.2 Immature Gran % (Auto) 0.400 Neut % (Auto) 65.0 Lymph % (Auto) 22.2 [place] % (Auto) 11.3 H Eos % (Auto) 0.4 Baso % (Auto) 0.7 Absolute Neuts (auto) 5.0 Absolute Lymphs (auto) 1.69 Nucleated RBC % 0 Sodium 138 Potassium 4.1 Chloride 105 Carbon Dioxide 23.0 Anion Gap 10 BUN 17 Creatinine 1.12 Estim Creat Clear Calc 58.72 Est GFR (MDRD) Af Amer 85 Est GFR (MDRD) Non-Af 70 BUN/Creatinine Ratio 15.2 Glucose 99 Calcium 9.3 Urine Color Yellow Urine Clarity Sl. Cloudy Urine pH 6.0 Ur Specific [place] 1.020 Urine Protein 15 H Urine Glucose (UA) Normal Urine Ketones 50 H Urine Occult Blood Negative Urine Nitrite Negative Urine Bilirubin Negative Urine Urobilinogen Normal Ur Leukocyte Esterase 25 H Urine RBC 0 SEEN Urine WBC 0-5 SEEN Ur Squamous Epith Cells 0-5 SEEN Urine Bacteria RARE Urine Mucus 0 SEEN Radiography Diagnostic Testing: Clinical Impression(s) from Imaging Studies Testicular Ultrasound 06/22/22 11:51 IMPRESSION: Small right hydrocele. Heterogeneity of the right epididymis. Electronically Signed: Ethan Artis MD at 14:17 EST , Discharge Plan Triage Chief Complaint: Male Pain/Injury ED Provider: Laya Kilpatrick Dx/Rx/DC Orders Clinical Impression: Abdominal pain, Pain in right testicle Instructions: ED Pain, Acute, Uncertain Cause, ED Abdominal Pain Unkn Cause Male... Prescriptions: New hydrocodone-acetaminophen [hydrocodone-acetaminophen] 1 TABLET tablet 1 tab PO Q4H PRN PRN (Reason: Pain) 2 Days Qty: 10 0RF No Action oxycodone-acetaminophen 1 EACH tablet 1 ea PO PRN PRN (Reason: Pain) alprazolam [Xanax] 1 MG tablet 1 mg PO BID PRN PRN (Reason: Anxiety/Restlessness/Sleep) amitriptyline 50 MG tablet 50 mg PO QHS triamterene-hydrochlorothiazid 1 CAP capsule 1 cap PO DAILY pregabalin 50 MG capsule 50 mg PO BID Venlafaxine Xr [Effexor Xr] 75 MG capsule 75 mg PO DAILY sertraline 100 MG tablet 200 mg PO DAILY Label Comments: take 2 tablets by mouth once daily cephalexin 500 MG capsule 500 mg PO Q6 Qty: 40 0RF oxycodone [OxyContin] 30 MG tablet,oral only,ext.rel.12 hr 30 mg PO BID Label Comments: take 1 tablet by mouth twice a day ciprofloxacin HCl 500 MG tablet 500 mg PO BID Qty: 14 0RF sulfamethoxazole-trimethoprim [sulfamethoxazole-trimethoprim] 800-160 mg tablet 1 tab PO BID Qty: 6 0RF Primary Care Provider: Mike Johnston Referrals: Ke Child MD [Med Staff - Active Staff] - 3-5 Days Mike Johnston DO [Primary Care Provider] - Disposition Disposition: Home, Self Care
[2022-06-22] MEDS: Ondansetron 4 MG/2 ML Vial IV (12:13)
[2022-06-22] MEDS: Ketorolac 15 MG/ML Vial IV (12:13)
[2022-06-22] MEDS: HYDROmorphone 1 MG/ML Syringe IV (12:14)
[2022-06-22] MEDS: 0.9% Normal Saline 1,000 ML 150 ML IV (12:15)
[2022-06-22 12:39] VITALS: BP 141/79; PULSE 78; RESP 18; TEMP 37.1; O2SAT 100
[2022-06-22 12:40] LABS: Absolute Lymphocyte Count 1.69 X10^3/uL (0.83-4.51); Basophil# 0.05 X10^3/uL; Basophil% 0.7 % (0-1); Eosinophil# 0.03 X10^3/uL; Eosinophils% 0.4 % (0-5); Hematocrit 42.1 % (40-54); Hemoglobin 14.4 g/dL (13.0-16.5); Lymphocyte # 1.69 X10^3/ul (0.83-4.51); Lymphocyte % 22.2 % (19-41); Mean Corp Hgb Conc 34.2 g/dL (32-36); Mean Corpuscular Hgb 32.6 pg (27.0-32.0); Mean Corpuscular Volume 95.2 fL (80-94); Mean Platelet Vol. 11.2 fl (6.2-12.0); Monocyte# 0.86 X10^3/uL; Monocyte% 11.3 % (0-10); NRBC Flagged by Analyzer 0 % (0-5); Neutrophil # 4.96 X10^3/uL (2.7-7.7); Platelet Count 219 K/mm3 (150-450); RBC Distribution Width CV 12.5 % (11.6-14.6); RBC Distribution Width SD 43.9 fl (35.1-43.9); Red Blood Count 4.42 M/mm3 (4.6-6.2); White Blood Count 7.6 K/mm3 (4.4-11.0)
[2022-06-22 12:52] LABS: Anion Gap 10 (5-15); BUN 17 mg/dL (7-18); BUN/Creat Ratio 15.2 RATIO (10-20); Calcium,Total 9.3 mg/dL (8.5-10.1); Chloride 105 mmol/L (98-107); Creatinine, Serum 1.12 mg/dL (0.70-1.30); EST Glomerular Filtration Rate 70 mL/min (>60); Est Glom Filt Rate - Afr Amer 85 mL/min (>60); Estimated Creatinine Clearance 58.72 ml/min; Glucose 99 mg/dL (74-106); Potassium 4.1 mmol/L (3.5-5.1); Sodium Level 138 mmol/L (136-145)
[2022-06-22 13:00] VITALS: BP 151/82; PULSE 80; RESP 20; TEMP 36.6; O2SAT 98
[2022-06-22 13:15] LABS: Mucous, Urine 0 SEEN /hpf (<or=2+); Red Blood Cells-Urine 0 SEEN /hpf (0-5)
[2022-06-22 13:17] LABS: Color, Urine Yellow (Yellow); Glucose, Dipstick Normal (Normal); Ketone-Dipstick 50 mg/dl (Negative); Leukocyte Esterase-Dipstick 25 /ul (Negative); Nitrite-Dipstick Negative (Negative); Occult Blood-Urine Negative /ul (Negative); Protein-Dipstick 15 mg/dl (Negative); Urine Bilirubin Dipstick Negative (Negative); Urine Clarity Sl. Cloudy (Clear); Urine Urobilinogen Normal (Normal)
[2022-06-22 13:26] LABS: Bacteria RARE /hpf (None Seen); Squamous Epithelial Cells - UA 0-5 SEEN /hpf (0-5); White Blood Cells 0-5 SEEN /hpf (0-5)
[2022-06-22 14:16] VITALS: BP 107/54; PULSE 80; O2SAT 99
[2022-06-22 14:51] VITALS: BP 119/81; PULSE 74; O2SAT 99
== END 2022-06-22 14:54 | disposition home or self-care (01) ==
PROVIDERS: Emergency Provider Emergency Medicine; PCP Family Medicine; Visit Provider Emergency Medicine
DX: R10.9 Unspecified abdominal pain (principal); N50.811 Right testicular pain; F17.210 Nicotine dependence, cigarettes, uncomplicated
CPT/HCPCS: 76870; 80048; 81001; 85025; 93976; 96374; 96375; 99285; J7030; A4216; J2405

== ENCOUNTER → 2023-02-14 | Outpatient (CLI) | payer OTHER, SELFPAY ==
[2023-02-14 18:11] LABS: Cholesterol 177 mg/dL (200); High Density Lipoprotein 52 mg/dL; PSA,Total - Annual Screen 2.08 ng/mL (0.00-4.00); Triglycerides 88 mg/dL; Very Low Density Lipoprotein 18 mg/dL (5-40)
[2023-02-14 19:21] LABS: Hemoglobin A1c 5.9 % (3.8-5.6)
== END | disposition home or self-care (01) ==
LOC: BFHLAB 14:51
PROVIDERS: PCP Family Medicine; Referring Provider Family Medicine; Visit Provider Family Medicine
DX: E78.5 Hyperlipidemia, unspecified (principal); R73.01 Impaired fasting glucose; Z12.5 Encounter for screening for malignant neoplasm of prostate
CPT/HCPCS: 36415; 80061; 83036; 84153; G0103

== ENCOUNTER 2023-09-10 11:14 | Emergency (ER) | payer MEDICARE, SELFPAY ==
[2023-09-10 11:15] VITALS: BP 127/89; PULSE 116; RESP 17; TEMP 36.3; O2SAT 95; BMI 26.6
--- NOTE | 2023-09-10 11:29 | EX.ED.VISEXT ---
HPI History of Present Illness Chief Complaint: Bite Informant: patient and family Narrative Narrative: 63-year-old male states he has a pet squirrel. He was trying to feed her some corn put her in her cage when she became upset and scratched and bit him as a result. He does not know exactly what injuries he sustained, he just knows that he started bleeding for both hands and immediately came to the emergency department for evaluation. His last tetanus is unknown. He states the squirrel has been raised by himself since it was a baby. Squirrel was a rescue. The squirrel has not been ill lately and is now asymptomatic. The squirrel has not been bitten by any other animals recently. ROS ROS ED Constitutional Constitutional ED: Denies chills or fever(s) Musculoskeletal Musculoskeletal: Reports extremity pain; Denies neck pain Integumentary Reports wounds; Denies Abrasions or rash Neurologic Neurologic: Denies paresthesias or weakness PFSH [facility] Medical History Cystitis Epididymitis History of kidney stones Home Medications Venlafaxine Xr [Effexor Xr] 75 mg PO DAILY 06/20/14 [History Last Taken 11/15/17] alprazolam 1 mg tablet (Xanax) 1 mg PO BID PRN PRN Anxiety/Restlessness/Sleep 06/20/14 [History Last Taken 11/15/17] amitriptyline 50 mg tablet 50 mg PO QHS 06/20/14 [History Last Taken 11/15/17] oxycodone-acetaminophen 10 mg-325 mg tablet 1 ea PO PRN PRN Pain 06/20/14 [History Last Taken 11/15/17] pregabalin 50 mg capsule 50 mg PO BID 06/20/14 [History Last Taken 11/15/17] triamterene 37.5 mg-hydrochlorothiazide 25 mg capsule 1 cap PO DAILY 06/20/14 [History Last Taken 11/15/17] sertraline 100 mg tablet 200 mg PO DAILY 12/05/16 [History Last Taken 11/15/17] cephalexin 500 mg capsule 500 mg PO Q6 ##40 12/06/16 [Rx Last Taken 11/15/17] ciprofloxacin HCl 500 mg tablet 500 mg PO BID #14 tabs 11/15/17 [Rx Last Taken Unknown] oxycodone 30 mg tablet,crush resistant,extended release 12 hr (OxyContin) 30 mg PO BID 11/15/17 [History Last Taken 11/15/17] sulfamethoxazole 800 mg-trimethoprim 160 mg tablet 1 tab PO BID #6 TABLETS 06/19/22 [Rx Last Taken Unknown] hydrocodone-acetaminophen 5-325mg 5mg-325mg 1 tab PO Q4H PRN PRN Pain 2 days #10 TABLETS 06/22/22 [Rx Last Taken Unknown] amoxicillin 875 mg-potassium clavulanate 125 mg tablet 875 mg (0.875 x 875-125 mg) PO Q12H #10 TABLETS 09/10/23 [Rx Last Taken Unknown] Allergy/AdvReac Type Severity Reaction Status Date / Time venom-honey bee Allergy Severe Anaphylaxis Verified 09/10/23 11:17 [bee venom (honey bee)] Surgical History History of back surgery Social History Smoking Status: Current every day smoker tobacco type: cigarettes EXAM Physical Exam Const Vital Signs: 09/10/23 11:15 Temperature 97.4 F L Temperature Source Temporal Pulse Rate 116 H Respiratory Rate 17 Blood Pressure 127/89 H Blood Pressure Mean 101 Pulse Ox 95 Oxygen Delivery Method Room Air Positive well nourished and well developed General Appearance ED: well developed and NAD Neck full ROM and supple Back/Spine normal ROM and normal to inspection Extremity full ROM Extremity Narrative: Patient has 3 separate small puncture wounds that are mildly oozing venous/capillary blood. One of them is on the dorsum of the distal phalanx of his left middle finger, without nail injury. The other 2 are on the proximal phalanx of the right index finger, 1 is at the radial aspect and the other is more volar. No joint involvement. No signs of tenosynovitis, full range of motion of the FDS, FDP, extensor, and there is no swelling or pain in the distribution of the flexor tendon sheath. Neuro oriented x3, no focal motor deficits and no sensory deficits noted Sensorium / Orientation: alert Psych mental status grossly normal and thought process normal Skin no wounds Rashes: no rashes MDM MDM MDM Narrative Medical decision making narrative: This patient is very minor injuries no repair needed there very small, and I am not concerned about any foreign bodies or fractures. No x-rays indicated. Patient's tetanus is updated, I will put him on Augmentin to prophylax against infection given that some of these look like small puncture wounds that could have involved teeth from a squirrel. I do not think we need to be concerned about rabies here and he is in agreement. Discharge Plan Triage Chief Complaint: Bite ED Provider: Kwesi Gill Dx/Rx/DC Orders Clinical Impression: Immunization, tetanus-diphtheria, Wound due to squirrel bite Instructions: Animal Bites and Scratches Prescriptions: New amoxicillin-pot clavulanate [amoxicillin-pot clavulanate] 875-125 mg tablet 875 mg PO Q12H Qty: 10 0RF No Action oxycodone-acetaminophen 1 EACH tablet 1 ea PO PRN PRN (Reason: Pain) alprazolam [Xanax] 1 MG tablet 1 mg PO BID PRN PRN (Reason: Anxiety/Restlessness/Sleep) amitriptyline 50 MG tablet 50 mg PO QHS triamterene-hydrochlorothiazid 1 CAP capsule 1 cap PO DAILY pregabalin 50 MG capsule 50 mg PO BID Venlafaxine Xr [Effexor Xr] 75 MG capsule 75 mg PO DAILY sertraline 100 MG tablet 200 mg PO DAILY Patient Comments: take 2 tablets by mouth once daily cephalexin 500 MG capsule 500 mg PO Q6 Qty: 40 0RF oxycodone [OxyContin] 30 MG tablet,oral only,ext.rel.12 hr 30 mg PO BID Patient Comments: take 1 tablet by mouth twice a day ciprofloxacin HCl 500 MG tablet 500 mg PO BID Qty: 14 0RF sulfamethoxazole-trimethoprim [sulfamethoxazole-trimethoprim] 800-160 mg tablet 1 tab PO BID Qty: 6 0RF hydrocodone-acetaminophen [hydrocodone-acetaminophen] 1 TABLET tablet 1 tab PO Q4H PRN PRN (Reason: Pain) 2 Days Qty: 10 0RF Primary Care Provider: Mike Johnston Referrals: Mike Johnston DO [Primary Care Provider] - As Needed Disposition Disposition: Home, Self Care
[2023-09-10] MEDS: Diphth,Pertuss(Acell),Tet Vac 0.5 ML Vial IM (11:48)
--- OUTSIDE RECORDS SUMMARY | 2023-09-10 11:54 | XMS RPT_ITS | CCD ---
Author Name Unknown Address [address] [place] [id number] Organization [facility] Results Test Name Value Interpretation Reference Range Facil ity Progress note 06-03-2021 Note Date & Type Note Facility 06-03-2021 Note HNO ID: [id number] Author: RT Nadia(Michelle) Service: Nuclear Medicine Author Type: Technologist Type: Progress Notes Filed: 06/03/2021 5:48 PM Note Text: Radiology Service Progress Note PATIENT NAME: Jac Berger DATE OF SERVICE: June 03, 2021 TIME: 5:39 PM PATIENT IDENTITY VERIFICATION COMPLETED USING TWO (2) IDENTIFIERS: Name and Date of confirmed by patient verbally. FALL SCREENING: Has the patient had 2 falls in the last year or 1 fall with injury or currently using an Ambulatory Assistive Device (Walker, Cane, Wheelchair, Crutches, etc.)? No PATIENT GENDER DATA: Male PATIENT RELEVANT IMPLANT DATA REVIEWED: Not Applicable RADIOLOGY DEPARTMENT: General X-ray: Exam(s) Completed: Chest X-Ray PERIPHERAL IV DATA: Not applicable SIGNED BY: RT Nadia(Michelle) June 03, 2021 5:39 PM [facility] Progress note 06-03-2021 Note Date & Type Note Facility 06-03-2021 Note HNO ID: [id number] Author: Enid Perez APRN.ACQUISITIONS ANALYST Service: ? Author Type: Nurse Practitioner Type: Progress Notes Filed: 06/03/2021 7:06 PM Note Text: CC: Patient presents with: Headache: NAVAS, chills and fatigue x 4 days HPI: Jac Berger is a 60 year old male who presents to the office with complaint of respiratory symptoms, chest congestion, head congestion, cough, nonproductive, wheezing and fever for 4 days. Symptoms are worsening Associated symptoms includes nasal congestion, headache, fever, wheezing and fatigue. Denies nausea, vomiting and diarrhea. Treatments tried include nothing so far. with no relief of symptoms. Sick contacts: unknown. History of asthma, frequent episodes of bronchitis, chronic bronchitis, bronchiectasis or COPD: No Smoker: No Seasonal/environmental allergies: No The ROS is otherwise negative. The patient's pmh, medications, allergies, and past visits are reviewed. PHYSICAL EXAM: BP 110/80 Pulse 76 Temp 36.7 ?C (98.1 ?F) (Tympanic) Resp 16 Wt 74.1 kg (163 lb 6.4 oz) SpO2 97% General appearance: alert, cooperative, pleasant, in no acute distress Head: Normocephalic Eyes: EOM's intact, conjunctiva pink and moist, no icterus, sclera white, non-injected Oropharynx:moist without lesions, No erythema, exudates or tonsillar hypertrophy.} Heart: Negative. RRR without obvious murmur, gallop, or rubs. No ectopy. Lungs: wheezing diffusely History reviewed. No pertinent past medical history. No past surgical history on file. ALLERGIES Venom-Honey Bee and Shellfish Containing Products MEDICATIONS No prescriptions on file. No family history on file. Social History Tobacco Use - Smoking status: Current Every Day Smoker - Smokeless tobacco: Never Used Substance Use Topics - Alcohol use: Not on file - Drug use: Not on file ASSESSMENT/PLAN: 1. Cough - ICD9: 786.2, ICD10: R05.9 (primary diagnosis) - XR CHEST 2V FRONTAL/LAT - COVID WITH FLUA+B, ROUTINE 2. Suspected COVID-19 virus infection - ICD9: V01.79, ICD10: Z20.822 - XR CHEST 2V FRONTAL/LAT - COVID WITH FLUA+B, ROUTINE Xray results: Not read by end of shift colleague will watch and call patient. Prescription instructions reviewed with patient as applicable. Potential red flag symptoms discussed with the patient. Reviewed appropriate action plan to take if red flag symptoms occur. Patient agreeable to treatment plan. Enid Perez APRN.[facility] Summary Purpose Family History No Family History Records Found Advance Directives No Advanced Directives Records Found Additional Source Comments (unrecognized sect ion and content) No Status Records Found INFORMATION SOURCE (unrecogn ized section and content) FOR RECORDS PERTAINING TO PATIENTS WHO ARE OR HAVE BEEN ENROLLED IN A CHEMICAL DEPENDENCY/SUBSTANCEABUSE PROGRAM, SOME INFORMATION MAY BE OMITTED. This clinical summary was aggregated from multiple sources. Caution should be exercised in using it in the provision of clinical care. This summary normalizes information from multiple sources, and as a consequence, information in this document may materially change the coding, format and clinical context of patient data. In addition, data may be omitted in some cases. CLINICAL DECISIONS SHOULD BE BASED ON THE PRIMARY CLINICAL RECORDS. [facility] [employer] [facility]. provides no warranty or guarantee of the accuracy or completeness of information in this document.
== END 2023-09-10 11:59 | disposition home or self-care (01) ==
LOC: ED 11:52
PROVIDERS: Emergency Provider Emergency Medicine; PCP Family Medicine; Visit Provider Emergency Medicine
DX: S61.203A Unspecified open wound of left middle finger without damage to nail, initial encounter (principal); S61.200A Unspecified open wound of right index finger without damage to nail, initial encounter; F17.210 Nicotine dependence, cigarettes, uncomplicated; Z23 Encounter for immunization; W53.21XA Bitten by squirrel, initial encounter
CPT/HCPCS: 90715; 99283

== ENCOUNTER → 2024-06-18 | Outpatient (CLI) | payer MEDICARE, SELFPAY ==
[2024-06-18 17:54] LABS: Absolute Lymphocyte Count 2.32 X10^3/uL (0.83-4.51); Absolute Neutrophil Count 3.5 X10^3/uL (2.0-7.7); Basophil# 0.05 X10^3/uL; Basophil% 0.8 % (0-1); Eosinophil# 0.09 X10^3/uL; Eosinophils% 1.4 % (0-5); Hematocrit 38.3 % (40-54); Hemoglobin 12.4 g/dL (13.0-16.5); Lymphocyte # 2.32 X10^3/ul (0.83-4.51); Lymphocyte % 34.9 % (19-41); Mean Corp Hgb Conc 32.4 g/dL (32-36); Mean Corpuscular Hgb 31.8 pg (27.0-32.0); Mean Corpuscular Volume 98.2 fL (80-94); Mean Platelet Vol. 11.4 fl (6.2-12.0); Monocyte# 0.66 X10^3/uL; Monocyte% 9.9 % (0-10); NRBC Flagged by Analyzer 0 % (0-5); Neutrophil # 3.51 X10^3/uL (2.7-7.7); Neutrophil % 52.8 % (47-70); Platelet Count 235 K/mm3 (150-450); RBC Distribution Width CV 13.4 % (11.6-14.6); RBC Distribution Width SD 48.4 fl (35.1-43.9); White Blood Count 6.6 K/mm3 (4.4-11.0)
[2024-06-18 18:10] LABS: ALB/GLOB Ratio 1.2 RATIO (0.9-2.4); AST(SGOT) 16 U/L (15-37); Alanine Aminotransfer ALT/SGPT 21 U/L (16-61); Albumin, Serum 3.8 g/dL (3.2-5.0); Alkaline Phosphatase 50 U/L (45-117); Anion Gap 4 (5-15); BUN 16 mg/dL (7-18); BUN/Creat Ratio 16.1 RATIO (10-20); Calcium,Total 9.2 mg/dL (8.5-10.1); Chloride 106 mmol/L (98-107); Cholesterol 141 mg/dL (200); Creatinine, Serum 0.99 mg/dL (0.70-1.30); EST Glomerular Filtration Rate 80 mL/min (>60); Est Glom Filt Rate - Afr Amer 97 mL/min (>60); Globulin 3.3 g/dL (2.2-4.2); Glucose 100 mg/dL (74-106); High Density Lipoprotein 59 mg/dL; Potassium 4.1 mmol/L (3.5-5.1); Protein, Total 7.1 g/dL (6.4-8.2); Sodium Level 140 mmol/L (136-145); Triglycerides 85 mg/dL; Very Low Density Lipoprotein 17 mg/dL (5-40)
[2024-06-18 19:27] LABS: Hemoglobin A1c 5.7 % (3.8-5.6)
[2024-06-18 19:29] LABS: Amphetamine Urine VISTA NEGATIVE (<1000 ng/mL); Barbiturate Urine VISTA NEGATIVE (< 200 ng/mL); Benzodiazepine Urine VISTA NEGATIVE (< 200 ng/mL); Cocaine Urine VISTA NEGATIVE (< 300 ng/mL); Ecstacy Urine VISTA NEGATIVE (< 500 ng/mL); Methadone Urine VISTA NEGATIVE (< 300 ng/mL); OXY Internal Control LINE = VALID (VALID); PCP Urine VISTA NEGATIVE (< 25 ng/mL); THC Urine VISTA POSITIVE (< 50 ng/mL); Vista UDS pH Range 6
[2024-06-18 19:30] LABS: Oxycodone Drug Screen Positive (<100 ng/mL)
[2024-06-20 09:36] LABS: Hepatitis C Antibody Non-Reactive (Nonreactive)
== END | disposition home or self-care (01) ==
LOC: BFHLAB 15:05
PROVIDERS: PCP Family Medicine; Referring Provider Family Medicine; Visit Provider Family Medicine
DX: R73.03 Prediabetes (principal); E78.5 Hyperlipidemia, unspecified; Z51.81 Encounter for therapeutic drug level monitoring; Z79.899 Other long term (current) drug therapy; Z11.59 Encounter for screening for other viral diseases; Z91.89 Other specified personal risk factors, not elsewhere classified; R53.83 Other fatigue
CPT/HCPCS: 36415; 80053; 80061; 80307; 80365; 83036; 85025; 86803; G0480

== ENCOUNTER 2024-08-19 12:47 | Emergency (ER) | payer MEDICARE, SELFPAY ==
[2024-08-19 12:48] VITALS: BP 135/119; PULSE 95; RESP 22; TEMP 37.3; O2SAT 95
--- NOTE | 2024-08-19 13:45 | RAD_ITS ---
PROCEDURE: CHEST PA AND LATERAL REASON FOR EXAM: Cough TECHNIQUE: Frontal and lateral views of the chest. COMPARISON: None. FINDINGS: The heart size is normal. There are atherosclerotic calcifications of the thoracic aorta. Lungs are hyperinflated. No acute infiltrate. Degenerative changes are identified within the thoracic spine. RAD/Chest PA and Lateral IMPRESSION: COPD changes with no acute cardiopulmonary disease Reading Location: [id number]
--- NOTE | 2024-08-19 15:03 | EX.ED.DYSGE1 ---
HPI History of Present Illness Chief Complaint: Fever Detail of Chief Complaint: Fever, flulike symptoms Informant: patient and family Onset/Context/Timing Onset: Days (3 days ago) Context: Sudden Onset Timing: Continuous Quality: Flulike symptoms Location: Respiratory Current Severity: Moderate Maximum Severity: Severe Worsened by: Activity Relieved by: Nothing Associated Symptoms Associated Symptoms: Subjective fever, rhinorrhea, myalgias arthralgias, difficulty breathing Narrative Narrative: Patient is a 64-year-old male. He has history of tobacco use, depression and pneumonia in the past. He is a smoker. He presents because of increased shortness of breath. He reports chills, subjective fever, rhinorrhea, congestion, postnasal drainage and sore throat. He has a cough which is nonproductive. He does endorse wheezing. He denies history of COPD or asthma. He denies history of cardiovascular disease. He denies abdominal pain, nausea, vomiting or diarrhea. He denies dysuria, frequency, urgency or hematuria. A person who is residing in the house was diagnosed recently with influenza A. Patient has no medication allergies. He is presently taking opiate analgesic. Prior similar symptoms: No Recent Illness/Hospitalization: No [facility] Medical History History of kidney stones Cystitis Epididymitis Home Medications ?Medication ?Instructions ?Recorded ?Last Taken ?Type Venlafaxine Xr [Effexor Xr] 75 mg PO DAILY 06/20/14 11/15/17 History alprazolam 1 mg tablet (Xanax) 1 mg PO BID PRN PRN 06/20/14 11/15/17 History Anxiety/Restlessness/Sleep amitriptyline 50 mg tablet 50 mg PO QHS 06/20/14 11/15/17 History oxycodone-acetaminophen 10 mg-325 1 ea PO PRN PRN Pain 06/20/14 11/15/17 History mg tablet pregabalin 50 mg capsule 50 mg PO BID 06/20/14 11/15/17 History triamterene 37.5 1 cap PO DAILY 06/20/14 11/15/17 History mg-hydrochlorothiazide 25 mg capsule sertraline 100 mg tablet 200 mg PO DAILY 12/05/16 11/15/17 History cephalexin 500 mg capsule 500 mg PO Q6 ##40 12/06/16 11/15/17 Rx ciprofloxacin HCl 500 mg tablet 500 mg PO BID #14 tabs 11/15/17 Unknown Rx oxycodone 30 mg tablet,crush 30 mg PO BID 11/15/17 11/15/17 History resistant,extended release 12 hr (OxyContin) sulfamethoxazole 800 1 tab PO BID #6 TABLETS 06/19/22 Unknown Rx mg-trimethoprim 160 mg tablet hydrocodone-acetaminophen 5-325mg 1 tab PO Q4H PRN PRN Pain 2 days 06/22/22 Unknown Rx 5mg-325mg #10 TABLETS amoxicillin 875 mg-potassium 875 mg PO Q12H #10 TABLETS 09/10/23 Unknown Rx clavulanate 125 mg tablet prednisone 20 mg tablet 60 mg (3 x 20 mg) PO DAILY #12 08/19/24 Unknown Rx TABLETS Allergy/AdvReac Type Severity Reaction Status Date / Time venom-honey bee (bee venom Allergy Severe Anaphylaxis Verified 08/19/24 12:47 (honey bee)) Surgical History History of back surgery Social History Smoking Status: Current every day smoker tobacco type: cigarettes ROS ROS ED Constitutional Constitutional ED: Reports chills, fever(s), subjective and sweats; Denies weight loss Eyes Eyes: Denies blurry vision or change in vision ENT ENT ED: Reports rhinorrhea and sore throat; Denies ear pain Cardiovascular Cardiovascular: Denies chest pain, orthopnea, palpitations, paroxysmal nocturnal dyspnea or racing heartbeat Respiratory/Chest Respiratory/Chest: Reports cough, dyspnea and dyspnea on exertion; Denies orthopnea, paroxysmal nocturnal dyspnea or sputum Gastrointestinal Gastrointestinal: Denies abdominal pain, diarrhea, nausea or vomiting Musculoskeletal Musculoskeletal: Reports arthralgias and myalgias; Denies neck pain Integumentary Denies rash Neurologic Neurologic: Denies headache(s) or paresthesias Endocrine Endocrinology: Denies cold intolerance or heat intolerance Hematologic/Lymphatic Hematologic/Lymphatic: Reports systems reviewed and no addt'l complaints, except as documented EXAM Physical Exam Narrative Exam Narrative: Patient is tachypneic. Patient is breathing more rapidly than what is documented. He does look breathing is labored. Const Vital Signs: 08/19/24 12:48 Temperature 99.1 F Temperature Source Oral Pulse Rate 95 Respiratory Rate 22 H Blood Pressure 135/119 H Blood Pressure Mean 124 Pulse Ox 95 Oxygen Delivery Method Room Air Positive well nourished and well developed General Appearance ED: well developed; Negative for NAD or pallor HEENT Reports moist mucous membranes HEENT Narrative: Head is atraumatic normocephalic. Ears normal. Nares patent. Posterior pharynx is normal. Eyes PERRL and EOMs intact bilaterally General Eye ED: Negative for pale conjunctiva or scleral icterus Neck no lymphadenopathy, supple and no JVD Neck Narrative: Trachea is midline. There is no dysphonia. There is no stridor. Resp No normal respiratory effort and No clear to auscultation bilaterally Resp Narrative: Expiratory phase is slightly increased. There is diminished air movement. Auscultation: wheezes expiratory wheezes and throughout Cardio regular rate, regular rhythm, S1 normal heart sound, S2 normal heart sound and no murmurs Extremity normal to inspection General Extremety ED: Negative for edema or tenderness General Extremity: Negative for edema Neuro oriented x3 and CN's II-XII intact bilaterally Sensorium / Orientation: alert Psych mental status grossly normal Skin no rashes or lesions noted, no wounds and skin turgor normal General Skin Exam: Negative for pallor MDM MDM MDM Narrative Medical decision making narrative: Differential diagnosis is acute bronchospasm due to viral infection versus bacterial. Will obtain chest x-ray to assess for pneumonia. Rapid antigen for COVID, RSV influenza was ordered especially since he has exposure to individuals who are ill with viral-like symptoms. Because he is wheezing does not have an inhaler he was treated with 4 puffs of metered-dose inhaler as well as prednisone 60 mg. Lab Data Attestation: I reviewed the patient's lab results. Lab results narrative: Rapid antigen for COVID, influenza and RSV is positive for influenza A. Radiography Chest X-Ray - ED: 2 View and Read by ED Physician (Hyperaeration. Cardiac silhouette and size normal. Hilum is normal. Osseous structures reveal no acute pathology. Some degenerative changes noted.) Diagnostic Testing: Clinical Impression(s) from Imaging Studies Chest X-Ray 08/19/24 13:45 IMPRESSION: COPD changes with no acute cardiopulmonary disease Reading Location: [facility] Treatment and Re-Evaluation :: Patient was reassessed. His breathing has improved. Plan is dispense metered-dose inhaler and burst of prednisone. He has been informed it is his best interest to quit smoking. Discharge Plan Triage Chief Complaint: Fever ED Provider: Duane Ortiz Dx/Rx/DC Orders Clinical Impression: Influenza A, Tobacco use disorder, Acute bronchospasm Instructions: ED Influenza (Adult) Prescriptions: New prednisone 20 mg tablet 60 mg PO DAILY Qty: 12 0RF No Action oxycodone-acetaminophen 1 EACH tablet 1 ea PO PRN PRN (Reason: Pain) alprazolam [Xanax] 1 MG tablet 1 mg PO BID PRN PRN (Reason: Anxiety/Restlessness/Sleep) amitriptyline 50 MG tablet 50 mg PO QHS triamterene-hydrochlorothiazid 1 CAP capsule 1 cap PO DAILY pregabalin 50 MG capsule 50 mg PO BID Venlafaxine Xr [Effexor Xr] 75 MG capsule 75 mg PO DAILY sertraline 100 MG tablet 200 mg PO DAILY Patient Comments: take 2 tablets by mouth once daily cephalexin 500 MG capsule 500 mg PO Q6 Qty: 40 0RF oxycodone [OxyContin] 30 MG tablet,oral only,ext.rel.12 hr 30 mg PO BID Patient Comments: take 1 tablet by mouth twice a day ciprofloxacin HCl 500 MG tablet 500 mg PO BID Qty: 14 0RF sulfamethoxazole-trimethoprim [sulfamethoxazole-trimethoprim] 800-160 mg tablet 1 tab PO BID Qty: 6 0RF hydrocodone-acetaminophen [hydrocodone-acetaminophen] 1 TABLET tablet 1 tab PO Q4H PRN PRN (Reason: Pain) 2 Days Qty: 10 0RF amoxicillin-pot clavulanate [amoxicillin-pot clavulanate] 875-125 mg tablet 875 mg PO Q12H Qty: 10 0RF Primary Care Provider: Mike Johnston Referrals: Mike Johnston, [Primary Care Provider] - 3-5 Days if not improving Activity Restrictions/Additional Instructions: 1. 2 puffs of inhaler every 2-4 hours while awake for the next 3 to 5 days then every 4-6 hours as needed for wheezing 2. Take prednisone as prescribed until gone 3. It is in your best interest to quit smoking. Print Language: Com[place] Disposition Disposition: Home, Self Care
[2024-08-19] MEDS: predniSONE 20 MG Tablet 60 MG PO (15:10)
[2024-08-19] MEDS: Albuterol Sulfate 8 gm Inhaler (60 puffs) 4 PUFF INHALATION (15:10)
[2024-08-19] MEDS: Ondansetron ODT 4 MG Tablet PO (15:39)
[2024-08-19 16:47] VITALS: PULSE 74; RESP 18
== END 2024-08-19 17:14 | disposition home or self-care (01) ==
PROVIDERS: Emergency Provider Emergency Medicine; PCP Family Medicine; Visit Provider Emergency Medicine
DX: J10.1 Influenza due to other identified influenza virus with other respiratory manifestations (principal); J98.01 Acute bronchospasm; F17.210 Nicotine dependence, cigarettes, uncomplicated; F32.A Depression, unspecified; Z79.899 Other long term (current) drug therapy
CPT/HCPCS: 71046; 87631; 99283